=== PATIENT | male | born 1935 | race Caucasian/White ===

== ENCOUNTER → 2018-12-08 | Day surgery (SDC) | payer MEDICARE, OTHER ==
[~2018-12-08] MED LIST: CALC500T30 PO; DOCU-109 PO; GABA-585 PO; IBUP200T77 PO; IV RINGERS,LACTATED 1000ML 1,000 ML IV ONE; KRIL500C PO; LIDOCAINE 2% PF 5 ML VIAL. ONE; LORA10TA3 PO; MULT1TAB52 PO; PANT40TA77 PO; PROPOFOL 20 ML IV ONE; TOPI50TA8 PO
[2018-12-08 09:13] VITALS: BP 147/83
== END ==
LOC: ENDOS 07:35
PROVIDERS: ATTEND Internal Medicine Gastroenterology
DX: K22.2 Esophageal obstruction (principal); K82.8 Other specified diseases of gallbladder; K21.9 Gastro-esophageal reflux disease without esophagitis; F15.90 Other stimulant use, unspecified, uncomplicated; Z87.891 Personal history of nicotine dependence; Z90.49 Acquired absence of other specified parts of digestive tract; Z98.890 Other specified postprocedural states
CPT/HCPCS: 43235; 43450; J2001; J2704